=== PATIENT | male | born 1985 | race African-American/Black ===

== ENCOUNTER 2019-01-08 08:54 | Emergency (ER) | payer MEDICARE, MEDICAID ==
[~2019-01-08] VITALS: Ht 177.8 cm; Wt 141.0 kg
[2019-01-08] MEDS ORDERED: LORATADINE 10MG TABLET PO SCH (09:45)
[2019-01-08] MEDS ORDERED: IBUPROFEN 600MG TABLET PO ONE (10:15)
[2019-01-08] MEDS ORDERED: METHYLPREDNISOLONE SOD SUCC 125 MG/2 ML VIAL IM ONE (11:45)
[2019-01-08] MEDS ORDERED: PREDNISONE 20MG TABLET PO ONE (12:00)
[2019-01-08 12:05] VITALS: BP 146/88
== END 2019-01-08 12:08 | disposition home or self-care (01) ==
LOC: ER 08:54
DX: J02.8 Acute pharyngitis due to other specified organisms (principal); F17.200 Nicotine dependence, unspecified, uncomplicated
CPT/HCPCS: 87070; 87430; 99283; J7512

== ENCOUNTER 2019-10-05 12:04 | Emergency (ER) | payer MEDICARE, MEDICAID ==
[~2019-10-05] VITALS: Ht 177.8 cm; Wt 142.0 kg
[2019-10-05 14:23] VITALS: BP 141/76
== END 2019-10-05 17:14 | disposition left against medical advice (07) ==
LOC: ER 13:59
DX: Z53.21 Procedure and treatment not carried out due to patient leaving prior to being seen by health care provider (principal)

== ENCOUNTER 2022-11-04 06:20 | Emergency (ER) | payer MEDICARE, MEDICAID ==
[~2022-11-04] VITALS: Ht 177.8 cm; Wt 130.0 kg
[2022-11-04 08:28] VITALS: BP 127/75
== END 2022-11-04 08:29 | disposition home or self-care (01) ==
LOC: ER 06:39
DX: K14.8 Other diseases of tongue (principal); E78.00 Pure hypercholesterolemia, unspecified; Z00.00 Encounter for general adult medical examination without abnormal findings
CPT/HCPCS: 99281

== ENCOUNTER 2024-10-27 09:43 | Emergency (ER) | payer MEDICAID, MEDICARE ==
[~2024-10-27] VITALS: Ht 180.3 cm; Wt 127.0 kg
[2024-10-27 09:55] VITALS: O2SAT 98
[2024-10-27] MEDS ORDERED: GUAI-450 PO (11:27)
[2024-10-27] MEDS: GUAIFENESIN/DM 600MG/30MG ER TAB 12HR PO PRN (12:11)
[2024-10-27 12:12] VITALS: BP 133/87; PULSE 78; RESP 16; TEMP 36.94740; O2SAT 98
== END 2024-10-27 12:12 | disposition home or self-care (01) ==
LOC: ER 09:43
DX: J40 Bronchitis, not specified as acute or chronic (principal); E78.00 Pure hypercholesterolemia, unspecified; F17.210 Nicotine dependence, cigarettes, uncomplicated; F20.0 Paranoid schizophrenia
CPT/HCPCS: 71045; 99283

== ENCOUNTER 2024-11-09 21:57 | Emergency (ER) | payer MEDICARE ==
[~2024-11-09] VITALS: Ht 177.8 cm; Wt 90.0 kg
[~2024-11-09 21:57] MED LIST: GUAI-450 PO
[2024-11-09 22:07] VITALS: BP 166/94; PULSE 100; RESP 18; TEMP 98.6; O2SAT 98
[2024-11-09 23:14] LABS: BASOPHILS % 0.5 % (0.0-2.0); HEMATOCRIT. 46.1 % (42.0-52.0); HEMOGLOBIN. 15.2 g/dL (14.0-18.0); LYMPHOCYTES % 30.9 % (20.0-50.0); MEAN CORPUSCULAR HEMOGLOBIN 31.6 pg (28.0-32.0); MEAN CORPUSCULAR VOLUME 95.6 fL (80.0-94.0); MEAN PLATELET VOLUME 6.8 fl (7.4-10.4); MONOCYTES % 4.9 % (2.0-8.0); NEUTROPHILS % 62.7 % (40.0-76.0); PLATELET 213 x1000/uL (130-400); RED BLOOD CELL COUNT 4.82 mill/uL (4.7-6.1); RED CELL DISTRIBUTION WIDTH 14.1 % (11.6-14.6); WHITE BLOOD COUNT 6.9 x1000/uL (4.5-11.0)
[2024-11-09 23:18] LABS: CHLORIDE 108 mEq/L (98-107); POTASSIUM 4.1 mEq/L (3.5-5.1); SODIUM 141 mEq/L (136-145)
[2024-11-09 23:19] LABS: CARBON DIOXIDE 22 mEq/L (21-32)
[2024-11-09 23:20] LABS: CALCIUM 9.3 mg/dL (8.7-10.4)
[2024-11-09 23:24] LABS: GLUCOSE 92 mg/dL (70-105); UREA NITROGEN BLOOD 6 mg/dL (9-23)
[2024-11-10 00:06] LABS: TROPONIN I HIGH SENSITIVITY < 4 ng/L (3.0-53)
[2024-11-10] MEDS ORDERED: IBUP-2029 MT (00:20)
[2024-11-10] MEDS: KETOROLAC 30MG/ML VIAL IM ONE (00:49)
[2024-11-10] MEDS: KETOROLAC 30MG/ML VIAL IM NR (00:49)
== END 2024-11-10 00:52 | disposition home or self-care (01) ==
LOC: ER 21:57
DX: R07.89 Other chest pain (principal); F10.129 Alcohol abuse with intoxication, unspecified; F20.9 Schizophrenia, unspecified; V89.2XXA Person injured in unspecified motor-vehicle accident, traffic, initial encounter; Y93.89 Activity, other specified; Y92.89 Other specified places as the place of occurrence of the external cause; Y99.8 Other external cause status; Y90.9 Presence of alcohol in blood, level not specified
CPT/HCPCS: 99285; 80048; 85025; 84484; 36415; 71101; 93005; 96372; J1885; A4565